=== PATIENT | male | born 1945 | race Caucasian/White ===

== ENCOUNTER → 2019-11-06 | Outpatient (CLI) | payer MEDICARE | END | disposition home or self-care (01) | LOC: CFH 11:11 | PROVIDERS: ATTEND Internal Medicine | DX: J18.9 Pneumonia, unspecified organism (principal) | CPT/HCPCS: 71046 ==

== ENCOUNTER → 2020-07-01 | Outpatient (CLI) | payer MEDICARE | END | disposition home or self-care (01) | LOC: CFH 13:50 | PROVIDERS: ATTEND Internal Medicine | DX: E04.1 Nontoxic single thyroid nodule (principal); E78.2 Mixed hyperlipidemia | CPT/HCPCS: 76536 ==

== ENCOUNTER → 2021-04-20 | Outpatient (CLI) | payer MEDICARE ==
[~2021-04-20] MED LIST: AMLO2.5T5 PO; ESOM20CA PO; Fish oil PO; LISI5TAB7 PO; VALACYCLOVIR PO; Vitamin D PO
[2021-04-20 09:34] LABS: BASOPHILS % (AUTO) 1 % (0-1); EOSINOPHILS % (AUTO) 2 % (1-7); LYMPHOCYTES % (AUTO) 33 % (22-44); MEAN CORPUSCULAR HEMOGLOBIN 36.7 pg (27.5-34.5); MEAN CORPUSCULAR HGB CONC 35.5 g/dL (33.2-36.2); MEAN PLATELET VOLUME 8.7 fL (7.4-10.4); MONOCYTES % (AUTO) 14 % (2-9); NEUTROPHILS % (AUTO) 50 % (42-75); PLATELET COUNT 169 x10^3/uL (130-400); RED BLOOD COUNT 4.14 x10^6/uL (4.38-5.82); RED CELL DISTRIBUTION WIDTH 11.5 % (9.4-14.8)
[2021-04-20 09:42] LABS: ALANINE AMINOTRANSFERASE 51 U/L (12-78); ALBUMIN 3.7 g/dL (3.4-5.0); ANION GAP 4 mmol/L (5-15); CALCIUM 8.8 mg/dL (8.5-10.1); CHLORIDE 108 mmol/L (98-107); CREATININE 0.91 mg/dL (0.7-1.3)
[2021-04-20 09:44] LABS: ALKALINE PHOSPHATASE 79 U/L (45-117); BILIRUBIN,TOTAL 0.7 mg/dL (0.2-1.0); INTERNATIONAL NORMALIZED RATIO 0.96 (0.93-1.1); PROTHROMBIN TIME 10.3 Seconds (9.6-11.5); TOTAL PROTEIN 7.1 g/dL (6.4-8.2)
== END | disposition home or self-care (01) ==
LOC: STAR 08:23
PROVIDERS: ATTEND Neurological Surgery
DX: Z01.818 Encounter for other preprocedural examination (principal); M48.062 Spinal stenosis, lumbar region with neurogenic claudication
CPT/HCPCS: 36415; 71046; 80053; 85025; 85610; 85730; 93005

== ENCOUNTER 2021-04-27 08:10 | Day surgery (SDC) | payer MEDICARE ==
[~2021-04-27] VITALS: Ht 188 cm; Wt 94.6 kg
[2021-04-27 09:05] VITALS: BP 155/90
[2021-04-27] MEDS ORDERED: CHLORHEXIDINE 15 ML UDC ONE (09:08)
[2021-04-27] MEDS ORDERED: CHLORHEXIDINE 15 ML UDC PO ONE (09:30)
[2021-04-27] MEDS ORDERED: LACTATED RINGERS 1,000 ML IV SCH (09:30)
[2021-04-27] MEDS ORDERED: MIDAZOLAM 1 MG/ML, 2ML ONE (10:53)
[2021-04-27] MEDS ORDERED: FENTANYL PF 250 MCG/5ML ONE (10:53)
[2021-04-27] MEDS ORDERED: SUGAMMADEX 200 MG/2 ML IVPush ONE (11:00)
[2021-04-27] MEDS ORDERED: EPINEPHRINE 1 MG/ML, 1ML ONE (11:29)
[2021-04-27] MEDS ORDERED: BUPIVACAINE/PF 0.25% ONE (11:29)
[2021-04-27] MEDS ORDERED: GENTAMICIN 80 MG/2 ML ONE (11:29)
[2021-04-27] MEDS ORDERED: methylPREDNISolone SOD SUCC 125 MG/2 ML ONE (11:41)
[2021-04-27] MEDS ORDERED: FENTANYL PF 100 MCG/2ML ONE (11:41)
[2021-04-27] MEDS ORDERED: FENTANYL PF 100 MCG/2ML IV PRN (12:00)
[2021-04-27] MEDS ORDERED: ACETAMINOPHEN 325 MG TABLET PO PRN (12:00)
[2021-04-27] MEDS ORDERED: LABETALOL 5MG/ML, 20ML IV PRN (12:00)
[2021-04-27] MEDS ORDERED: MEPERIDINE/PF 25MG/0.5ML IVPush PRN (12:00)
[2021-04-27] MEDS ORDERED: PROMETHAZINE 25 MG/ML, 1ML IVPush PRN (12:00)
[2021-04-27] MEDS ORDERED: OXYcodone 5 MG/5 ML ORAL.SOL UDC PO PRN (12:00)
[2021-04-27] MEDS ORDERED: HALOPERIDOL 5 MG/ML IV PRN (12:00)
[2021-04-27] MEDS ORDERED: hydrALAzine 20 MG/ML, 1ML IV PRN (12:00)
[2021-04-27] MEDS ORDERED: HYDROmorphone 1 MG/ML, 1ML INJ IVPush PRN (12:00)
[2021-04-27] MEDS ORDERED: DIPHENHYDRAMINE 50 MG/ML, 1ML IVPush PRN (12:00)
[2021-04-27] MEDS ORDERED: CEFAZOLIN 1,000 MG ONE (12:59)
[2021-04-27] MEDS ORDERED: ROCURONIUM 10MG/ML,5ML ONE (12:59)
[2021-04-27] MEDS ORDERED: PROPOFOL 10 MG/ML, 20ML ONE (12:59)
[2021-04-27] MEDS ORDERED: NEOSTIGMINE 1 MG/ML, 10ML ONE (12:59)
[2021-04-27] MEDS ORDERED: SUCCINYLCHOLINE 20 MG/ML, 10ML ONE (12:59)
[2021-04-27] MEDS ORDERED: GLYCOPYRROLATE 0.2MG/1ML, 5ML ONE (12:59)
[2021-04-27] MEDS ORDERED: ONDANSETRON 2MG/ML, 2ML ONE (12:59)
[2021-04-27] MEDS ORDERED: DEXAMETHASONE 4 MG/ML, 1ML ONE (12:59)
[2021-04-27] MEDS ORDERED: OXYC-302 PO (13:19)
[2021-04-27] MEDS ORDERED: TIZA-106 PO (13:19)
== END 2021-04-27 17:50 | disposition home or self-care (01) ==
LOC: OUT 08:10
PROVIDERS: ATTEND Neurological Surgery
DX: M48.062 Spinal stenosis, lumbar region with neurogenic claudication (principal); M51.16 Intervertebral disc disorders with radiculopathy, lumbar region; I10 Essential (primary) hypertension; E78.5 Hyperlipidemia, unspecified; K21.9 Gastro-esophageal reflux disease without esophagitis; I25.10 Atherosclerotic heart disease of native coronary artery without angina pectoris; J38.01 Paralysis of vocal cords and larynx, unilateral; Z79.899 Other long term (current) drug therapy; Z79.82 Long term (current) use of aspirin; Z91.013 Allergy to seafood; Z82.49 Family history of ischemic heart disease and other diseases of the circulatory system
CPT/HCPCS: 63047; 63048; 72100; J0171; J0330; J0690; J1100; J1580; J2250; J2405; J2704; J2710; J2930; J3010; J7120